=== PATIENT | male | born 1985 | race Caucasian/White ===

== ENCOUNTER 2017-07-26 20:42 | Emergency (ER) | payer OTHER ==
[~2017-07-26] VITALS: Ht 193 cm; Wt 153.3 kg
[~2017-07-26 20:42] MED LIST: DICLOFENAC SODI50 MG PO; NORFLEX100MG PO
== END 2017-07-26 22:40 | disposition home or self-care (01) ==
LOC: ER 20:42
DX: T78.49XA Other allergy, initial encounter (principal); R21 Rash and other nonspecific skin eruption